=== PATIENT | male | born 1965 | race Caucasian/White ===

== ENCOUNTER 2025-09-06 10:10 | Emergency (ER) | payer MEDICAID ==
[~2025-09-06] VITALS: Ht 172.7 cm; Wt 82.7 kg
[2025-09-06 10:18] VITALS: TEMP 98
--- NOTE | 2025-09-06 10:38 | Physician Documentation ---
History of Present Illness ~ Chief Complaint: Shoulder pain Stated Complaint: RIGHT SHOULDER PAIN Time Seen by MD: 12:52 HPI This is a 59-year-old male presents with right shoulder pain for the past three days onset while hammering on a metal object. Patient reports difficult to move his shoulder due to the pain. Tetanus within 5 years?: No Medication Reconciliation Allergies: Coded Allergies: [id number]-[id number] Reductase Inhibitor (Verified Allergy, Unknown, 07/16/23) morphine (Verified Allergy, Unknown, 07/16/23) naproxen (Verified Allergy, Unknown, 07/16/23) tramadol (Verified Allergy, Unknown, 07/16/23) Scheduled Ibuprofen (Ibuprofen), 1 TAB PO Q8H Lidocaine (Lidoderm), 1 PATCH TOP DAILY Past Medical History Past Medical History: High Cholesterol, Hypertension Past Surgical History: noncontributory Lives In: Home Review of Systems ROS As stated above in the HPI, otherwise all systems are reviewed and negative. Physical Exam Vital Signs: Temperature: 98.0, Heart Rate: 81, Respiratory Rate: 18, BP: 115/88, Pulse Oximetry: 98, Weight: 82.730 Oxygen Flow Rate: 0 Physical Exam VITALS: Reviewed and as above. GENERAL: Alert, nontoxic appearing, no apparent distress. HEENT: RESPIRATORY: No increased work of breathing, no respiratory distress, speaking in full clear sentences CHEST: CV: BACK: GI: MUSCULOSKELETAL: Anterior right shoulder tender to palpation otherwise nontender to palpation, ROM limited due to pain SKIN: NEURO: PSYCH: Progress Results/Orders Results/Orders Orders - ARVIN RODRÍGUEZ Shoulder, Complete (Min 2 Vws) (09/06/25 10:21) Completed Orders - ARVIN RODRÍGUEZ Shoulder, Complete (Min 2 Vws) (09/06/25 10:21) Ibuprofen Tablet (Motrin Tablet) (09/06/25 13:05) Lidocaine 5% Patch (Lidoderm 5% Patch) (09/06/25 13:05) Medications Received in ER Medications (Trade) Dose Ordered Sig/Sandra Route PRN Reason Start Time Stop Time Status Last Admin Dose Admin (Motrin tablet) 800 mg ONCE ONCE PO 09/06/25 13:05 09/06/25 13:06 DC 09/06/25 13:09 800 MG (Lidoderm 5% Patch) 1 patch ONCE ONCE TP 09/06/25 13:05 09/06/25 13:06 DC 09/06/25 13:09 1 PATCH Vital Signs 09/06/25 09/06/25 10:18 13:15 Temp 98.0 Pulse 81 67 Resp 18 16 B/P (MAP) 115/88 129/77 Pulse Ox 98 100 O2 Flow Rate 0 EKG/XRAY/CT/US/VASC/MRI Bone/Soft Tissue X-Ray (Ext.) : Additional Comment Exam: SHOULDER, COMPLETE (MIN 2 VWS) INDICATION: Shoulder Pain TECHNIQUE: 2 radiographic views of the right shoulder were obtained. COMPARISON: None FINDINGS/IMPRESSION: No acute fracture or dislocations. Minimal degenerative changes of the right shoulder. Calcific tendinopathy. No acute soft tissue abnormalities. No radiographic foreign body. Visualized portions of the lungs are clear. Electronically Signed by:BOAZ CORDOVA MD Date & Time: 09/06/25 105 Dictated by: BOAZ CORDOVA MD Dictation date and time: 09/06/25 105 I have reviewed and agree with the radiology report. 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 X-ray did not demonstrate evidence of fracture or dislocation, I suspect soft tissue injury due to overuse, patient medicated for pain and placed in sling for comfort. Management plan with this is an ice, patient to follow up with the primary care provider for further management and possible referral to physical therapy. Patient is otherwise well-appearing and appropriate for outpatient follow up, patient provided home care instructions return to care precautions has been follow up instructions which he verbalized understanding of. Differential Dx:Considerations: Include: AC separation, Adhesive capsulitis, arthritis, Bicipital tendonitis, Calcific tendonitis, Cervical disc disease, Contusion, Dislocation, Fracture: Humerus, Fracture: Scapula, Fracture: Clavicle, Gallbladder Disease, Hematoma, Impingement syndrome, Myocardial infarction, Neurovascular Injury, Rotator cuff injury, SC dislocation, Sprain, Subacromial bursitis Departure Time of Disposition: 13:11 Disposition: 01 HOME / SELF CARE / HOMELESS Impression: Primary Impression: Shoulder pain Qualified Codes: M25.511 - Pain in right shoulder Condition: Improved Discharge Instructions: Shoulder Pain Additional Instructions: I suspect your shoulder pains from overuse injury, please use the sling for comfort otherwise please see attached home care instructions, use the medications as prescribed. Please follow up with your primary care provider in the next few days. Please return to the emergency department for any new or worsening concerning symptoms. Referrals: NO PRIMARY CARE PROVIDER (PCP) Prescriptions Lidocaine (Lidoderm) 5 % Adh..patch 1 PATCH TOP DAILY for 30 Days, #10 PATCH 0 Refills may wear up to 12 hours Prov: ARVIN RODRÍGUEZ 09/06/25 Ibuprofen (Ibuprofen) 800 Mg Tablet 1 TAB PO Q8H for pain for 10 Days, #30 TAB 0 Refills Prov: ARVIN RODRÍGUZE 09/06/25 Education Educated: Patient Educated regarding: diagnosis, treatment, prognosis, need for follow up Signature Scribe Signature: No scribe Attestation: The note accurately reflects work and decisions made by me.ROQUE Price 09/06/25 20:56 ARVIN RODRÍGUEZ Sep 06, 2025 10:38
--- NOTE | 2025-09-06 10:55 | RADIOLOGY REPORT ---
INDICATION: Shoulder Pain TECHNIQUE: 2 radiographic views of the right shoulder were obtained. COMPARISON: None FINDINGS/IMPRESSION: No acute fracture or dislocations. Minimal degenerative changes of the right shoulder. Calcific tendinopathy. No acute soft tissue abnormalities. No radiographic foreign body. Visualized portions of the lungs are clear.
[2025-09-06] MEDS: ibuprofen tablet 400 MG TABLET PO ONE (13:09)
[2025-09-06 13:15] VITALS: BP 129/77; PULSE 67; RESP 16; O2SAT 100
[2025-09-06] MEDS ORDERED: LIDO-52 TOP (13:16)
[2025-09-06] MEDS ORDERED: IBUP-1986 PO (13:16)
== END 2025-09-06 13:22 | disposition home or self-care (01) ==
LOC: ER 10:12
DX: M25.511 Pain in right shoulder (principal); E78.00 Pure hypercholesterolemia, unspecified; I10 Essential (primary) hypertension; Z88.6 Allergy status to analgesic agent; Z88.5 Allergy status to narcotic agent; Z88.8 Allergy status to other drugs, medicaments and biological substances
CPT/HCPCS: 73030; 99283; A4565